=== PATIENT | male | born 1935 | race Hispanic/Latino ===

== ENCOUNTER 2019-02-04 11:26 | Inpatient (IN) | payer MEDICARE ==
[~2019-02-04] VITALS: Ht 167.6 cm; Wt 72.6 kg
[2019-02-04 12:23] LABS: BASOPHILS % 0.5 % (0.0-1.0); EOSINOPHILS # (AUTO) 0.1 (0.0-0.4); EOSINOPHILS % 1.1 % (0.0-6.0); HEMATOCRIT 30.9 % (38.2-49.6); HEMOGLOBIN 9.9 g/dL (14.0-18.0); LYMPHOCYTES % 11.9 % (18.0-39.1); MEAN CORPUSCULAR VOLUME 90.6 fL (81-99); MONOCYTES # (AUTO) 0.9 (0.2-0.8); MONOCYTES % 11.2 % (4.4-11.3); NEUTROPHILS % 73.8 % (38.7-80.0); PLATELET COUNT 510 x10e3/uL (140-360); RED BLOOD COUNT 3.41 x10e6/uL (4.3-5.7); RED CELL DISTRIBUTION WIDTH 12.3 % (11.7-14.4)
[2019-02-04 12:38] LABS: CLARITY,URINE SL CLOUDY (CLEAR); COLOR,URINE YELLOW (YELLOW)
[2019-02-04 12:39] LABS: BILIRUBIN,URINE NEGATIVE (NEGATIVE); KETONES,URINE NEGATIVE (NEGATIVE); LEUKOCYTE ESTERASE ,URINE NEGATIVE (NEGATIVE); NITRITE,URINE NEGATIVE (NEGATIVE); PROTEIN,URINE DIPSTICK NEGATIVE (NEGATIVE); URINE UROBILINOGEN 0.2 mg/dL (0.2 - 1)
[2019-02-04 12:40] LABS: AMORPHOUS SEDIMENT,URINE FEW (FEW); BACTERIA,URINE MODERATE /HPF; EPITHELIAL CELLS,URINE MODERATE /LPF; INR 1.05; MUCUS,URINE MODERATE (RARE); PROTHROMBIN TIME 14.2 seconds (11.9-14.5); RBC,URINE 0-5 /HPF (0-5); WBC,URINE (MAN) 0-5 /HPF (0-5)
[2019-02-04 12:42] LABS: ALANINE AMINOTRANSFERASE 132 IU/L (0-55); ALBUMIN 2.5 g/dL (3.5-5.0); ALBUMIN/GLOBULIN RATIO 0.5 (0.8-2.0); ALKALINE PHOSPHATASE 84 IU/L (40-150); ANION GAP 19.9 mmol/L (8-16); BLOOD UREA NITROGEN 52 mg/dL (7-26); BUN/CREATININE RATIO 24 (6-25); CALCIUM 9.2 mg/dL (8.4-10.2); CARBON DIOXIDE 18 mmol/L (22-29); CHLORIDE 104 mmol/L (98-107); CREATINE KINASE 35 IU/L (30-200); CREATININE, SERUM 2.19 mg/dL (0.72-1.25); EST GLOMERULAR FILTRATION RATE 29 ML/MIN (60-); GLUCOSE 270 mg/dL (74-118); PARTIAL THROMBOPLASTIN TIME 58.1 seconds (23.8-35.5); POTASSIUM 4.9 mmol/L (3.5-5.1); SODIUM 137 mmol/L (136-145)
--- NOTE | 2019-02-04 13:15 | Diagnostic Imaging Report ---
EXAMINATION: CHEST 2 VIEWS INDICATION: Cough, shortness of breath COMPARISON: None FINDINGS: LINES/TUBES:EKG leads overlie the chest. LUNGS:The lungs are moderately inflated. Patchy opacity at the right lung base. PLEURA:Moderate right pleural effusion. No pneumothorax. MEDIASTINUM:The cardiomediastinal silhouette appears normal in size and shape. Atherosclerotic calcifications of the thoracic aorta. BONES/SOFT TISSUES:No acute osseous injury. ABDOMEN:No free air under the diaphragm. IMPRESSION: Moderate right pleural effusion. Patchy opacity at the right lung base likely represents associated subsegmental atelectasis. Signed by: Robbin Briseno MD on 02/04/2019 1:11 PM
[2019-02-04] MEDS ORDERED: DEXTROSE 50% SYRINGE 50 ML IV PRN (13:30)
[2019-02-04] MEDS ORDERED: SODIUM CHLORIDE 0.9% 1000ML 1,000 ML IV ONE (13:30)
[2019-02-04] MEDS ORDERED: SODIUM CHLORIDE 0.9% 1000ML 1,000 ML IV SCH (13:30)
--- OUTSIDE RECORDS SUMMARY | 2019-02-04 13:37 | XMS REPORT ---
Author Author [facility] Address Unknown Phone Unavailable Care Team Providers Care Tool Inspector Name Role Phone Don HARLEY Unavailable Unavailable Problems This patient has no known problems. Allergies, Adverse Reactions, Alerts This patient has no known allergies or adverse reactions. Medications This patient has no known medications. Results Test Description Test Time Test Comments Text Results Atomic Results Result Comments CHEST 2 VIEWS 2019-02-04 13:10:00 [place] [address] Patient Name: EDWARD SANCHEZ MR #: [id number] : 1935 Age/Sex: 83/M Req #: [id number] Adm Physician: Ordered by: JANETH HARLEY MD Report #: [id number] Location: ER Room/Bed: Procedure: [id number] DX/CHEST 2 VIEWS Exam Date: Exam Time: REPORT STATUS: Signed EXAMINATION: CHEST 2 VIEWS INDICATION: Cough, shortness of breath COMPARISON: None FINDINGS: LINES/TUBES:EKG leads overlie the chest. LUNGS:The lungs are moderately inflated. Patchy opacity at the right lung base. PLEURA:Moderate right pleural effusion. No pneumothorax. MEDIASTINUM:The cardiomediastinal silhouette appears normal in size and shape. Atherosclerotic calcifications of the thoracic aorta. BONES/SOFT TISSUES:N o acute osseous injury. ABDOMEN:No free air under the diaphragm. IMPRESSION: Moderate right pleural effusion. Patchy opacity at the right lung base likely represents associated subsegmental atelectasis. Signed by: Leanne Briseno MD on 02/04/2019 1:11 PM Dictated By: LEANNE BRISENO MD [id number] Transcribed By: TYLER on 02/04/191310 COPY TO: JANETH HARLEY MD
[2019-02-04] MEDS: CEFTRIAXONE SOD 1 GM/NS 50 ML 50 ML IV SCH (14:10)
[2019-02-04] MEDS ORDERED: LISINOPRIL40 MG PO (14:19)
[2019-02-04] MEDS ORDERED: JANUVIA100 MG PO (14:19)
[2019-02-04] MEDS: AZITHROMYCIN 500MG/NS 250 ML 250 ML IV SCH (14:43)
[2019-02-04] MEDS: ALBUTEROL SULF 0.083% NEB SOLN 3 ML NEB NEB SCH ×2 (14:45→19:45)
[2019-02-04 15:50] VITALS: BP 123/57
[2019-02-04] MEDS: INSULIN LISPRO 100 UNIT/1 ML 3ML VIAL SQ SCH ×2 (16:30→21:48)
--- NOTE | 2019-02-04 16:30 | NUR ---
RCD PT FROM ER BY STRETCHER PT IS ALERT AND ORIENTED VITALS CHECKED PT RESTING ON BED NO SIGNS OF ANY DISTRESS NOTED ADMISSION ASSESSMENT AND HISTORY DONE PT IS MAINLY PERUVIAN SPEAKING FAMILY WITH HIM FAMILY SAID [place] STARTED THE BREATHING PROBLEM FOR 3 MONTHS HE WAS TREATING OUT PATIENT BASIS HE DIDN'T FEEL BETTER SO HE CAME TO THE HOSPITAL IV PATENT AND RUNNING 100 ML /HE INSTRUCTED PT AND FAMILY REGARDING HOSPITAL POLICY AND ROUTINE BED LOW AND LOCKED CALL LIGHT IN REACH
[2019-02-04 17:27] VITALS: BP 123/57
[2019-02-04 17:28] VITALS: BP 123/57
--- NOTE | 2019-02-04 18:26 | NUR ---
PT WENT TO PROCEDURE IN SAFE CONDITION
--- NOTE | 2019-02-04 19:11 | NUR ---
PT RESTING ON BED BED SIDE REPORT GIVEN TO ONCOMING NURSE
[2019-02-04] MEDS: IPRATROPIUM BROMIDE 0.02% 2.5 ML NEB NEB SCH (19:45)
[2019-02-04 20:21] VITALS: BP 143/64
--- NOTE | 2019-02-04 20:37 | Diagnostic Imaging Report ---
EXAMINATION: CT scan of the chest without contrast. TECHNIQUE: Spiral CT images of the chest were performed from the lung apices to the level of the adrenal glands. No intravenous contrast was administered per physician's request. Coronal and sagittal reformatted images were obtained. COMPARISON: Chest 2 views 02/04/2019 CLINICAL HISTORY:Pleural effusion, prior exposure to TB DISCUSSION: ABSENCE OF INTRAVENOUS CONTRAST DECREASES SENSITIVITY FOR DETECTION OF FOCAL LESIONS AND VASCULAR PATHOLOGY. LINES/TUBES: None. LUNGS AND AIRWAYS: Marked compressive atelectasis of the right lower lobe and moderate compressive atelectasis of the right middle lobe. No pulmonary nodules, or masses. No significant bronchiectasis. The airways are clear, without endobronchial lesions. PLEURA: Large right-sided pleural effusion. No pneumothorax. HEART AND MEDIASTINUM: Thyroid is unremarkable. Heart size is normal. No pericardial effusion. Mild atherosclerotic calcification of the aortic valves and coronary arteries moderate calcification of the thoracic aortic arch. The aorta is nonaneurysmal. Main pulmonary artery is enlarged, measuring 3.4 cm. LYMPH NODES: Mildly enlarged right lower paratracheal lymph node, which measures 1.1 cm in short axis and is partly calcified. Calcified nonenlarged right periaortic, right lower paratracheal, subcarinal and bilateral hilar nodes. No axillary adenopathy. ABDOMEN: Limited unenhanced views of the upper abdomen show no abnormality within the visualized liver, spleen, pancreas. The adrenal glands are unremarkable. BONES AND SOFT TISSUES: No acute bony abnormalities. Soft tissues are grossly unremarkable. IMPRESSION: 1. Large right-sided pleural effusion with marked compressive atelectasis of the right lower lobe with moderate compressive atelectasis of the right middle lobe. 2. Mildly enlarged right lower paratracheal lymph node which is partly calcified. Multiple mediastinal and hilar calcified nodes, consistent with prior granulomatous disease. 3. Main pulmonary artery is enlarged, suggesting pulmonary hypertension. Signed by: Dr. Bernardo Morgan M.D. on 02/04/2019 8:34 PM
[2019-02-04 20:52] VITALS: BP 143/64
[2019-02-04 21:19] LABS: CREATINE KINASE MB 2.1 ng/mL (0-5.0)
[2019-02-05] VITALS (8 sets, daily range): BP systolic 117–173; BP diastolic 60–79
[2019-02-05] MEDS: ALBUTEROL SULF 0.083% NEB SOLN 3 ML NEB NEB SCH ×6 (00:05→23:10)
[2019-02-05] MEDS: IPRATROPIUM BROMIDE 0.02% 2.5 ML NEB NEB SCH ×4 (00:05→19:25)
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
--- NOTE | 2019-02-05 02:22 | History and Physical ---
MEDICINE HISTORY AND PHYSICAL CHIEF COMPLAINT: Shortness of breath. HISTORY OF PRESENT ILLNESS: This is an 83-year-old male, history of type 2 diabetes and hypertension, comes into the ED with complaints of shortness of breath, ongoing for the last several days prior to arrival to the hospital. He was recently diagnosed by his primary care physician several weeks ago with underlying community-acquired pneumonia. At that time, his QuantiFERON gold was positive according to the traveling auditor and was sent to a local traveling auditor, Dr. Hernandez to be further evaluated. At that time, he did evaluate the patient. He noticed that he had some pleural effusion, and he was told to come to get a thoracentesis, ultrasound guided. Instead, the patient did not do that and presented to the [facility] ER for further management and care. The patient reports having some worsening cough and congestion ongoing for the last one month. He denies any fever at home, chest pain, or any palpitations. He does report that he does have some pleural effusion. After discussing this case with Pulmonary, his QuantiFERON gold was positive, but we do not know if the patient truly has active TB or not. At this time, the patient will be under airborne precautions and further testing will be performed. The patient is seen and evaluated at bedside on the medical floor. He is currently doing well with no other issues at this time. The patient's children were at bedside and they were not aware of his QuantiFERON gold being positive. REVIEW OF SYSTEMS: 1. Pertinent positives: Cough, congestion, and shortness of breath. 2. Pertinent negatives: Denies any chest pain, palpitation, nausea, vomiting, diarrhea, dysuria, hematuria, frequency, urgency, lightheadedness, dizziness, abdominal pain, headaches, or any fever. Rest of the 14-point review of systems have been reviewed with the patient and are negative. ALLERGIES: NO KNOWN DRUG ALLERGIES. HOME MEDICATIONS: 100 mg daily. He takes lisinopril 40 mg daily. PAST MEDICAL HISTORY: Hypertension and diabetes. PAST SURGICAL HISTORY: Reports none. FAMILY HISTORY: Hypertension and diabetes. SOCIAL HISTORY: No drugs. No alcohol. Does not smoke. Good social support. PHYSICAL EXAMINATION: VITAL SIGNS: Temperature is 96.3, pulse is 94, respiratory rate is 20, blood pressure is 120/57, and pulse ox is 96% on room air. GENERAL: Not in acute distress. Alert and oriented x3. Cooperative on examination. HEENT: Head is normocephalic and atraumatic. Eyes; pupils are equal, round, and reactive to light bilaterally. Throat, no evidence of erythema or exudates in the posterior pharynx. Has poor dentition. NECK: Supple. Good range of motion throughout. PULMONARY: Clear to auscultation bilaterally. No wheezing, no rales, no rhonchi, no crackles appreciated. CARDIOVASCULAR: Positive S1 and S2. No murmurs, rubs, or gallops appreciated. ABDOMEN: Soft, nontender, and nondistended to palpation. Bowel sounds present. MUSCULOSKELETAL: Strength is 5/5 throughout. No evidence of any muscle deficits on examination. No weakness appreciated. NEUROLOGICAL: Cranial nerves 2 through 12 grossly intact. No evidence of any neurological deficits on exam. SKIN: Intact. Warm to touch. Good cap refill. PSYCHIATRIC: Normal affect and mood. EXTREMITIES: No edema. Good range of motion throughout. LABORATORY FINDINGS: Show white count 8, hemoglobin 9.9, hematocrit 30.9, and platelets of 510. Coagulation; PT 14, INR 1, PTT 58. Chemistry; sodium 137, potassium 4.9, chloride 104, bicarb 18, anion gap of 19, BUN is 52, creatinine is 2.2, glucose is 270, and calcium 9.2. LFTs shows a total bilirubin was 0.8, AST 80, ALT 132. CK 35, troponin is 0.001. BNP 82, total protein 7.2, albumin is 2.5. Urinalysis shows a urine bacteria was moderate, hyaline casts 2-5, moderate urine mucus, and specific gravity was elevated at 1.030. Slightly cloudy urine. MICROBIOLOGY: Blood cultures are pending. IMAGING STUDIES: Chest x-ray shows moderate right pleural effusion. Patchy opacity in the right lung base likely represent associated subsegmental atelectasis. IMPRESSION: 1. Shortness of breath with underlying right pleural effusion. 2. QuantiFERON gold positive. Must rule out active TB. 3. Probable community-acquired pneumonia. 4. Type 2 diabetes. 5. Hypertension. PLAN: At this time, continue with IV antibiotics. Monitor urine for blood cultures. I did consult with Pulmonary and he did state to me that the patient had a positive QuantiFERON gold in the office. At this time, we do not know if the patient truly has active TB or latent TB. We are going to go ahead and order a chest CT with IV contrast to see if there are any cavitary lesions. We will continue with IV fluids. We will go ahead and consult IR to do a thoracentesis as well and assess for his underlying etiology. Otherwise, we will also order a.m. labs. Get a hemoglobin A1c. Insulin sliding scale. No IV fluids indicated. We will put Lovenox for DVT prophylaxis as well. MD RUFINO Nuñez/MODL /[id number]
--- NOTE | 2019-02-05 02:40 | NUR ---
Patient complained of bladder discomfort. Bladder tenderness noted. Bladder scan done and revealed 554 ml of urine. Will notify .
--- NOTE | 2019-02-05 02:50 | NUR ---
New orders received from Dr. Hopkins to insert Randle.
--- NOTE | 2019-02-05 03:00 | NUR ---
Randle [place] 16 inserted, 560 ml urine noted.
[2019-02-05 04:58] LABS: BASOPHILS % 0.3 % (0.0-1.0); EOSINOPHILS % 0.4 % (0.0-6.0); HEMATOCRIT 26.7 % (38.2-49.6); HEMOGLOBIN 8.5 g/dL (14.0-18.0); LYMPHOCYTES # (AUTO) 0.6 (1.0-3.2); LYMPHOCYTES % 8.5 % (18.0-39.1); MEAN CORPUSCULAR HEMOGLOBIN 28.6 pg (28-32); MEAN CORPUSCULAR HGB CONC 31.8 g/dL (31-35); MEAN CORPUSCULAR VOLUME 89.9 fL (81-99); MONOCYTES # (AUTO) 0.8 (0.2-0.8); MONOCYTES % 10.5 % (4.4-11.3); NEUTROPHILS # (AUTO) 5.7 (2.1-6.9); NEUTROPHILS % 78.1 % (38.7-80.0); PLATELET COUNT 479 x10e3/uL (140-360); RED BLOOD COUNT 2.97 x10e6/uL (4.3-5.7); RED CELL DISTRIBUTION WIDTH 12.3 % (11.7-14.4)
[2019-02-05 05:30] LABS: ALBUMIN 2.2 g/dL (3.5-5.0); ALBUMIN/GLOBULIN RATIO 0.6 (0.8-2.0); ANION GAP 15.9 mmol/L (8-16); CALCIUM 8.4 mg/dL (8.4-10.2); CREATININE, SERUM 1.64 mg/dL (0.72-1.25); POTASSIUM 4.9 mmol/L (3.5-5.1)
[2019-02-05 06:30] LABS: CREATINE KINASE MB 2.3 ng/mL (0-5.0)
--- NOTE | 2019-02-05 06:46 | Diagnostic Imaging Report ---
EXAMINATION: CHEST SINGLE (PORTABLE) INDICATION: Pneumonia. COMPARISON: 02/04/2019. FINDINGS: LINES/TUBES:None. LUNGS:Patchy opacity at the right lung base suggestive of compressive atelectasis.. PLEURA:Moderate right pleural effusion. No pneumothorax. MEDIASTINUM:The cardiomediastinal silhouette appears normal in size and shape. Atherosclerotic calcifications of the thoracic aorta. BONES/SOFT TISSUES:No acute osseous injury. ABDOMEN:No free air under the diaphragm. IMPRESSION: No interval change. Moderate right pleural effusion and right lower lobe compressive atelectasis best evaluated on recent CT chest. Signed by: Dr. Andrew Rowan M.D. on 02/05/2019 6:42 AM
[2019-02-05] MEDS: INSULIN LISPRO 100 UNIT/1 ML 3ML VIAL SQ SCH ×4 (07:30→20:36)
[2019-02-05 08:48] LABS: BAND NEUTROPHILS % (MANUAL) 4 %; LYMPHOCYTES % (MANUAL) 9 % (19-48); MONOCYTES % (MANUAL) 7 % (3.4-9.0); NEUTROPHILS % (MANUAL) 80 % (40-74)
[2019-02-05 08:51] LABS: NUCLEATED RED BLOOD CELLS 0
[2019-02-05] MEDS: AZITHROMYCIN 500MG/NS 250 ML 250 ML IV SCH (08:52)
[2019-02-05] MEDS: SITAGLIPTIN 100 MG TAB PO SCH (08:52)
[2019-02-05 08:53] LABS: ANISOCYTOSIS S; PLATELET ESTIMATE SLIGHTLY INCREASED; PLATELET MORPHOLOGY COMMENT NORMAL; POIKILOCYTOSIS S; RBC MORPHOLOGY COMMENT NORMAL
--- NOTE | 2019-02-05 09:00 | NUR ---
The pt. is in bed awake and alert and denies pain or discomfort at this time. The pt. denies productive cough. He has family members in attendance.
[2019-02-05] MEDS: CEFTRIAXONE SOD 1 GM/NS 50 ML 50 ML IV SCH (13:15)
--- NOTE | 2019-02-05 13:30 | Progress Note ---
DATE: 02/05/2019 Medicine Progress Note SUBJECTIVE: He is scheduled for thoracentesis later today. No overnight events. PHYSICAL EXAMINATION: VITAL SIGNS: He is afebrile, normotensive. Respiratory rate is good. He is on 97% on nasal cannula. GENERAL: Not in acute distress. Alert and oriented x3. Cooperative on examination. HEENT: Head; normocephalic and atraumatic. Eyes; pupils are equal, round, and reactive to light bilaterally. Extraocular movements are intact bilaterally. Throat; no evidence erythema or exudates in the posterior pharynx. Has poor dentition. NECK: Supple. Good range of motion throughout. PULMONARY: Clear to auscultation bilaterally. No wheezing, no rales, no rhonchi, no crackles appreciated. CARDIOVASCULAR: Positive S1 and S2. No murmurs, rubs, or gallops appreciated. ABDOMEN: Soft, nontender, and nondistended to palpation. Bowel sounds present. MUSCULOSKELETAL: Strength is 5/5 throughout. No evidence of any muscle deficits on examination. No weakness appreciated. NEUROLOGICAL: Cranial nerves II through XII grossly intact. No evidence of neurological deficits on exam. SKIN: Intact. Warm to touch. Good cap refill. PSYCHIATRIC: Normal affect and mood. EXTREMITIES: No edema. Good range of motion throughout. LABORATORY DATA: Lab findings show white count 7.3, hemoglobin 8.5, hematocrit 26, platelets of 479. Coagulation normal. Chemistries reviewed, it shows sodium 137, potassium 4.9, 107, bicarb 19, anion gap of 15, BUN 43, creatinine 1.6, glucose is 223. Hemoglobin A1c is 8.3, albumin is 2.2. Cardiac enzymes were all negative. MICROBIOLOGY: Blood cultures are pending. IMAGING STUDIES: Chest x-ray this morning shows no interval change. Moderate right pleural effusion and right lower lobe compressive atelectasis. IMPRESSION: 1. Respiratory distress with underlying right pleural effusion. 2. QuantiFERON gold positive, must rule out TB. 3. Probable community-acquired pneumonia. 4. Type 2 diabetes. 5. Hypertension. PLAN: At this time, continue with IV antibiotics for now. Monitor blood cultures. Pulmonary is following as well. We do have a chest x-ray today that showed similar findings as yesterday. He is scheduled for thoracentesis later today by IR. We will continue with Lovenox for DVT prophylaxis and follow with Pulmonary recommendations. Get a.mCecilia labs. MD RUFINO Nuñez/ISIS /[id number]
--- NOTE | 2019-02-05 14:14 | NUR ---
The pt was given a specimen cup to collect a sputum sample.
--- NOTE | 2019-02-05 14:15 | Progress Note ---
DATE: SUBJECTIVE: The patient has less dyspnea today. He is undergoing an echo. He is awaiting thoracentesis. PHYSICAL EXAMINATION: VITAL SIGNS: The patient is afebrile. The blood pressure is 155/75 and the saturation is 97%. HEENT: Shows no facial swelling or erythema. LYMPHATIC: Shows no submandibular, cervical, or supraclavicular adenopathy. CARDIAC: Reveals a regular rate and rhythm with normal S1 and S2. LUNGS: Auscultation of lungs shows decreased breath sounds on the right side. ABDOMEN: Soft and nontender. There is no rebound or guarding. EXTREMITIES: Show no leg edema or calf tenderness. There is no cyanosis or clubbing. SKIN: Shows no rashes. NEUROLOGICAL: Shows no focal abnormalities. RADIOGRAPHIC DATA: CT scan of the chest shows a large right-sided pleural effusion and some enlarged calcified paratracheal lymph nodes consistent with prior granulomatous infection. IMPRESSION: 1. Dyspnea and large right pleural effusion of unclear cause. 2. 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 PLAN: 1. The patient is awaiting ultrasound-guided thoracentesis. 2. Await results of echocardiogram. 3. Obtain sputum for AFB. 4. Further recommendations depending on test results. Johnathan Hernandez MD [facility]/ISIS /[id number]
[2019-02-05] MEDS: ENOXAPARIN SOD INJ 40 MG/0.4 ML SYR SC SCH (17:00)
--- NOTE | 2019-02-05 17:59 | NUR ---
Contacted the for thoracentesis fluid tests and was advised that what he wants run is already in the compter as he put them in himself on 02/04. 500 cc's fluid removed.
[2019-02-05 18:18] LABS: BODY FLUID APPEARANCE CLOUDY; BODY FLUID COLOR YELLOW; BODY FLUID TYPE PLEURAL
[2019-02-05 19:19] LABS: RBC,BODY FLUID 2960 cells/uL; WBC,BODY FLUID 5455 cells/uL
[2019-02-05 20:21] LABS: LYMPHOCYTES,BODY FLUID 87 %; MONO/MACROPHG,BODY FLUID 10 %; NEUTROPHILS,BODY FLUID 3 %
[2019-02-06] MEDS: IPRATROPIUM BROMIDE 0.02% 2.5 ML NEB NEB SCH ×4 (02:35→19:00)
[2019-02-06] MEDS: ALBUTEROL SULF 0.083% NEB SOLN 3 ML NEB NEB SCH ×6 (02:35→23:00)
[2019-02-06 05:04] LABS: BASOPHILS % 0.4 % (0.0-1.0); EOSINOPHILS # (AUTO) 0.1 (0.0-0.4); EOSINOPHILS % 1.3 % (0.0-6.0); HEMATOCRIT 28.9 % (38.2-49.6); HEMOGLOBIN 9.2 g/dL (14.0-18.0); LYMPHOCYTES # (AUTO) 0.6 (1.0-3.2); LYMPHOCYTES % 8.4 % (18.0-39.1); MEAN CORPUSCULAR HEMOGLOBIN 28.8 pg (28-32); MEAN CORPUSCULAR HGB CONC 31.8 g/dL (31-35); MEAN CORPUSCULAR VOLUME 90.3 fL (81-99); MONOCYTES # (AUTO) 1.1 (0.2-0.8); MONOCYTES % 14.7 % (4.4-11.3); NEUTROPHILS # (AUTO) 5.2 (2.1-6.9); NEUTROPHILS % 73.2 % (38.7-80.0); PLATELET COUNT 477 x10e3/uL (140-360); RED CELL DISTRIBUTION WIDTH 12.3 % (11.7-14.4)
[2019-02-06 05:29] LABS: ALBUMIN 2.4 g/dL (3.5-5.0); ALBUMIN/GLOBULIN RATIO 0.6 (0.8-2.0); ANION GAP 14.1 mmol/L (8-16); CREATININE, SERUM 1.64 mg/dL (0.72-1.25); POTASSIUM 5.1 mmol/L (3.5-5.1)
[2019-02-06 05:43] VITALS: BP 126/76
[2019-02-06 08:01] VITALS: BP 122/65
[2019-02-06] MEDS: AZITHROMYCIN 500MG/NS 250 ML 250 ML IV SCH (08:15)
[2019-02-06] MEDS: SITAGLIPTIN 100 MG TAB PO SCH (08:15)
[2019-02-06 08:20] VITALS: BP 122/65
[2019-02-06] MEDS: INSULIN LISPRO 100 UNIT/1 ML 3ML VIAL SQ SCH ×4 (08:30→21:45)
--- NOTE | 2019-02-06 08:36 | Diagnostic Imaging Report ---
PROCEDURE: Ultrasound-guided thoracentesis Procedural Personnel Attending physician(s): Robbin Briseno MD Fellow physician(s): None Resident physician(s): None Advanced practice provider(s): None Pre-procedure diagnosis: Right pleural effusion Post-procedure diagnosis: Same Indication: Pleural effusion with compromised respiration Additional clinical history: None Complications: No immediate complications. IMPRESSION: Ultrasound-guided thoracentesis with drainage of 550 mL of serous fluid. Plan: Resume care by clinical team. PROCEDURE SUMMARY: - Limited thoracic ultrasound - Ultrasound-guided thoracentesis - Additional procedure(s): None PROCEDURE DETAILS: Pre-procedure Consent: Informed consent for the procedure including risks, benefits and alternatives was obtained and time-out was performed prior to the procedure. Preparation: The site was prepared and draped using maximal sterile barrier technique including cutaneous antisepsis. Anesthesia/sedation Level of anesthesia/sedation: No sedation Anesthesia/sedation administered by: Not applicable Limited thoracic ultrasound Limited thoracic ultrasound was performed using a curved transducer. A safe window for thoracentesis was identified. Left hemithorax findings: Not investigated Right hemithorax findings: Moderate pleural effusion Thoracentesis Local anesthesia was administered. The pleural space was accessed and fluid return confirmed position. The fluid was drained. The catheter was removed, and a sterile bandage was applied. Catheter placed: 5F Yueh Post-drainage hemithorax findings: Small pleural effusion Additional Details Additional description of procedure: None Equipment details: None Specimens removed: Pleural fluid Estimated blood loss (mL): Less than 10 Standardized report: [id number] Attestation Signer name: Robbin Briseno MD I attest that I was present for the entire procedure. I reviewed the stored images and agree with the report as written. Signed by: Robbin Briseno MD on 02/06/2019 8:32 AM
--- NOTE | 2019-02-06 08:49 | Diagnostic Imaging Report ---
EXAMINATION: CHEST 2 VIEWS INDICATION: Pleural effusion COMPARISON: Multiple prior chest radiograph, most recently of 02/05/2019, chest CT of 02/04/2019 FINDINGS: LINES/TUBES:EKG leads overlie the chest. LUNGS:The left lung is well inflated. The right lung is moderately inflated. Patchy opacity at the right lung base, likely subsegmental atelectasis. PLEURA:Moderate right pleural effusion, somewhat decreased from 02/05/2019. No pneumothorax. MEDIASTINUM:The cardiomediastinal silhouette appears unchanged in size and shape. Atherosclerotic calcifications of the thoracic aorta. BONES/SOFT TISSUES:No acute osseous injury. ABDOMEN:No free air under the diaphragm. IMPRESSION: Moderate right pleural effusion, somewhat decreased from 02/05/2019. No pneumothorax. Patchy right basilar opacity, likely subsegmental atelectasis. Signed by: Robbin Briseno MD on 02/06/2019 8:46 AM
--- NOTE | 2019-02-06 10:07 | NUR ---
Sputum taken to lab
--- NOTE | 2019-02-06 11:19 | Progress Note ---
DATE: SUBJECTIVE: The patient had ultrasound-guided thoracentesis yesterday. A 550 mL were removed. The fluid was serosanguineous. There were 5455 white blood cells with 87% lymphocytes. The patient reports some improved dyspnea. He had some urinary retention yesterday and a Randle was placed. PHYSICAL EXAMINATION: VITAL SIGNS: The patient is afebrile. The blood pressure is 126/76. HEENT: Shows no facial swelling or erythema. LYMPHATIC: Shows no submandibular, cervical, or supraclavicular adenopathy. CARDIAC: Reveals regular rate and rhythm with normal S1 and S2. There are no murmurs or rubs heard. LUNGS: Auscultation of lungs shows decreased breath sounds on the right side. ABDOMEN: Soft, nontender. There is no rebound or guarding. EXTREMITIES: There is no leg edema or calf tenderness. LABORATORY DATA: BUN to creatinine ratio is 32:1.64 and the other electrolytes are within normal limits. AST is 39 and ALT is 90. White blood cell count is 7.1 and hemoglobin is 9.2. The platelet count is 477. IMPRESSION: 1. Dyspnea and a large right pleural effusion with lymphocytic predominance. 2. Positive QuantiFERON Gold test. 3. Acute urinary retention, possibly secondary to benign prostatic hypertrophy. 4. Xetet-gs-ksrxwhv renal failure. PLAN: 1. Await results of echocardiogram. 2. Continue to obtain sputum for AFB. 3. Start Flomax and attempt trial of catheter removal. 4. Repeat chest x-ray today. Johnathan Hernandez MD [facility]/ISIS /[id number]
[2019-02-06 11:28] VITALS: BP 129/64
[2019-02-06] MEDS: CEFTRIAXONE SOD 1 GM/NS 50 ML 50 ML IV SCH (13:12)
--- NOTE | 2019-02-06 15:20 | Progress Note ---
DATE: 02/06/2019 Medicine Progress Note SUBJECTIVE: The patient is doing well today with no complaints. He did have a thoracentesis yesterday with 500 mL of fluid removed. PHYSICAL EXAMINATION: VITAL SIGNS: Temperature is 97.4, pulse 93, respiratory rate is 20, blood pressure 129/64, and pulse ox 95% on room air. GENERAL: Not in acute distress. Alert and oriented x3. Cooperative on examination. HEENT: Head; normocephalic, atraumatic. Eyes; pupils are equal, round, and reactive to light bilaterally. Extraocular movements intact bilaterally. Throat; no evidence of erythema or exudates in the posterior pharynx. Has poor dentition. NECK: Supple. Good range of motion. PULMONARY: Clear to auscultation bilaterally. No wheezing, no rales, no rhonchi, no crackles appreciated. CARDIOVASCULAR: Positive S1 and S2. No murmurs, rubs, or gallops appreciated. ABDOMEN: Soft, nondistended, and nontender to palpation. Bowel sounds present. MUSCULOSKELETAL: Strength is 5/5 throughout. No evidence of any muscle deficits on examination. No weakness appreciated. NEUROLOGIC: Cranial nerves II through XII grossly intact. No evidence of any neurological deficits on exam. SKIN: Intact. Warm to touch. Good cap refill. PSYCHIATRIC: Normal affect and mood. EXTREMITIES: No edema. Good range of motion throughout. LABORATORY FINDINGS: Show white count 7.1, hemoglobin 9.2. Hematocrit 28.9, and platelets of 477. Coagulation stable. Chemistries reviewed, stable. IMPRESSION: 1. Respiratory distress with underlying right pleural effusion, status post thoracentesis on 02/05/2019, 500 mL of fluid removed. 2. QuantiFERON gold positive, rule out TB. 3. Probable community-acquired pneumonia. 4. Type 2 diabetes. 5. Hypertension. PLAN: At this time, continue to follow the cultures, IV antibiotics. Thoracentesis performed yesterday. Monitor blood culture no growth to date. Pulmonary is following as well. Sputum cultures have been sent off as well. Get a.m. labs. Bravo Hopkins MD JSJuliann/MODL /[id number]
[2019-02-06 15:58] VITALS: BP 127/67
[2019-02-06] MEDS: ENOXAPARIN SOD INJ 40 MG/0.4 ML SYR SC SCH (16:37)
[2019-02-06 20:00] VITALS: BP 127/72
[2019-02-06] MEDS: TAMSULOSIN HCL 0.4 MG CAP PO SCH (21:45)
[2019-02-07] VITALS (8 sets, daily range): BP systolic 116–134; BP diastolic 60–79
[2019-02-07] MEDS: IPRATROPIUM BROMIDE 0.02% 2.5 ML NEB NEB SCH ×4 (04:41→19:00)
[2019-02-07] MEDS: ALBUTEROL SULF 0.083% NEB SOLN 3 ML NEB NEB SCH ×6 (04:41→23:00)
[2019-02-07 05:26] LABS: ALBUMIN 2.2 g/dL (3.5-5.0); ALBUMIN/GLOBULIN RATIO 0.5 (0.8-2.0); ANION GAP 15.4 mmol/L (8-16); CALCIUM 8.8 mg/dL (8.4-10.2); CREATININE, SERUM 1.27 mg/dL (0.72-1.25); POTASSIUM 4.4 mmol/L (3.5-5.1)
[2019-02-07] MEDS: INSULIN LISPRO 100 UNIT/1 ML 3ML VIAL SQ SCH ×4 (08:30→22:11)
[2019-02-07] MEDS: AZITHROMYCIN 500MG/NS 250 ML 250 ML IV SCH (08:36)
[2019-02-07] MEDS: SITAGLIPTIN 100 MG TAB PO SCH (08:36)
--- NOTE | 2019-02-07 11:09 | Progress Note ---
DATE: SUBJECTIVE: The patient reports less cough. He feels better. He has better appetite. PHYSICAL EXAMINATION: VITAL SIGNS: The patient is afebrile. The blood pressure is 118/64 and saturation is 99%. HEENT: Shows no facial swelling or erythema. The nasal mucosa is normal. The oropharynx is normal. LYMPHATIC: Shows no submandibular, cervical, or supraclavicular adenopathy. CARDIAC: Reveals regular rate and rhythm with normal S1 and S2. There are no murmurs or rubs. RESPIRATORY: Auscultation of lungs reveal clear breath sounds bilaterally. There is no wheezing. ABDOMEN: Soft and nontender. There is no rebound or guarding. EXTREMITIES: Show no leg edema or calf tenderness. There is no cyanosis or clubbing. SKIN: Shows no rashes. IMPRESSION: 1. Right pleural effusion with lymphocytosis. 2. 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 3. Acute on chronic renal failure. 4. Urinary retention secondary to benign prostatic hypertrophy. PLAN: 1. Final sputum for AFB this morning. 2. Continue Flomax. 3. Family to be evaluated for exposure to tuberculosis. 4. Await potential treatment for mycobacterium infection. 5. Await sputum AFB results. If the patient is AFB positive, then he should be started on antituberculosis regimen. Johnathan Hernandez MD [facility]/ITZELL /[id number]
[2019-02-07] MEDS: CEFTRIAXONE SOD 1 GM/NS 50 ML 50 ML IV SCH (12:43)
--- NOTE | 2019-02-07 15:56 | Progress Note ---
DATE: 02/07/2019 Nephrology Progress Note SUBJECTIVE: The patient is doing well today with no complaints. if this is a true positive or not. If it is positive, then we have to get health department involved. If it is negative then he could possibly will be discharged home soon. We will have to wait for the results on this particular sputum. I discussed with the nursing staff. PHYSICAL EXAMINATION: VITAL SIGNS: Temperature 97.6, pulse 93, respiratory rate 20, blood pressure 120/66, pulse ox 96% on room air. GENERAL: Not in acute distress. Alert and oriented x3. Cooperative on examination. HEENT: Head; normocephalic, atraumatic. Eyes; pupils are equal, round, and reactive to light bilaterally. Extraocular movements intact bilaterally. Throat; no evidence of erythema or exudates in the posterior pharynx. Has poor dentition. NECK: Supple. Good range of motion. PULMONARY: Clear to auscultation bilaterally. No wheezing, no rales, no rhonchi, no crackles appreciated. CARDIOVASCULAR: Positive S1 and S2. No murmurs, rubs, or gallops appreciated. ABDOMEN: Soft, nondistended, and nontender to palpation. Bowel sounds present. MUSCULOSKELETAL: Strength is 5/5 throughout. No evidence of any muscle deficits on examination. No weakness appreciated. NEUROLOGIC: Cranial nerves II through XII grossly intact. No evidence of any neurological deficits on exam. SKIN: Intact. Warm to touch. Good cap refill. PSYCHIATRIC: Normal affect and mood. EXTREMITIES: No edema. Good range of motion throughout. LABORATORY FINDINGS: CBC stable. Chemistries show sodium 136, potassium 4.4, chloride 105, bicarb 20, anion gap of 15, BUN is 25, creatinine 1.27, glucose is 160. LFTs within normal range. ALT actually slightly elevated at 63, albumin is 2.2. MICROBIOLOGY: Still pending several AFB sputums. IMPRESSION: 1. Respiratory distress with underlying left pleural effusion, status post thoracentesis on 02/05/2019, 500 mL of fluid removed. 2. QuantiFERON gold positive, rule out TB. 3. Probable community-acquired pneumonia. 4. Type 2 diabetes. 5. Hypertension. PLAN: At this time, final sputum cultures had been collected. Wait for those preliminary results. In the event if it is positive, he will need to be treated accordingly and if it is negative, the patient can be discharged. I do not know when that will occur and maybe several more days from now before we get final results. We will continue follow the cultures and follow recommendations by Pulmonary. He is constipated, Colace and MiraLAX have been ordered. MD RUFINO Nuñez/ISIS /[id number]
--- NOTE | 2019-02-07 15:57 | NUR ---
Patient was offered shower. Patient does not want to shower at this time.
[2019-02-07] MEDS: ENOXAPARIN SOD INJ 40 MG/0.4 ML SYR SC SCH (17:00)
[2019-02-07] MEDS: POLYETHYLENE GLYCOL 3350 17 GM PACK PO SCH (17:00)
--- NOTE | 2019-02-07 19:20 | NUR ---
PATIENT RECEIVED. PATIENT RESTING IN BED. RESP EVEN AND UNLABORED. NO ACUTE DISTRESS NOTED. TELE IN PLACE. LANGFORD IN PLACE. FAMILY AT BED SIDE. CALL LIGHT WITHIN REACH. BED LOW/LOCKED. CONTINUE TO MONITOR CLOSELY
[2019-02-07] MEDS: TAMSULOSIN HCL 0.4 MG CAP PO SCH (22:06)
[2019-02-07] MEDS: DOCUSATE SODIUM 100 MG CAP PO PRN (22:06)
[2019-02-08] VITALS (7 sets, daily range): BP systolic 115–154; BP diastolic 64–82
[2019-02-08] MEDS: ALBUTEROL SULF 0.083% NEB SOLN 3 ML NEB NEB SCH ×5 (00:10→20:45)
[2019-02-08] MEDS: IPRATROPIUM BROMIDE 0.02% 2.5 ML NEB NEB SCH ×4 (06:50→20:45)
[2019-02-08] MEDS: INSULIN LISPRO 100 UNIT/1 ML 3ML VIAL SQ SCH ×4 (07:30→20:29)
--- NOTE | 2019-02-08 07:47 | NUR ---
IMM letter delivered and explained to pt. He verbalized understanding. Signed copy placed in chart. Copy to pt's transition of care folder.
[2019-02-08] MEDS: SITAGLIPTIN 100 MG TAB PO SCH (09:28)
[2019-02-08] MEDS: POLYETHYLENE GLYCOL 3350 17 GM PACK PO SCH (09:28)
[2019-02-08] MEDS: AZITHROMYCIN 500MG/NS 250 ML 250 ML IV SCH (09:28)
--- NOTE | 2019-02-08 11:05 | NUR ---
PER EXHAUSTER ENGINEER DESI, HEALTH DEPARTMENT HAS ALREADY BEEN NOTIFIED OF PATIENT STATUS.
--- NOTE | 2019-02-08 14:01 | Progress Note ---
DATE: Pulmonary Progress Note SUBJECTIVE: The patient feels much better. He has given 3 sputums to the laboratory. PHYSICAL EXAMINATION: VITAL SIGNS: The patient is afebrile. The vital signs are stable. HEENT: Shows no facial swelling or erythema. CARDIAC: Reveals regular rate and rhythm with normal S1 and S2. LUNGS: Auscultation of the lungs reveals decreased breath sounds at the bases. There is no wheezing. ABDOMEN: Soft, nontender. There is no rebound or guarding. EXTREMITIES: Show no leg edema or calf tenderness. IMPRESSION: 1. Exudative right pleural effusion with lymphocytic predominance. 2. Positive QuantiFERON Gold test. 3. [id number] renal failure. 4. Urinary retention. PLAN: 1. The patient had 3 sputums done and is awaiting AFB results. 2. Health Department has been notified and will evaluate the patient. 3. Obtain official echocardiogram results to place on medical record. 4. The patient still requires a cardiology evaluation, which can probably be done as an outpatient. 5. Family members should be screened for tuberculosis. 6. The patient is ready for discharge from my perspective. Followup of his AFBs and any required treatment can be done as an outpatient. MD GERSON Palomares/ISIS /[id number]
--- NOTE | 2019-02-08 14:57 | Progress Note ---
DATE: 02/08/2019 Medicine Progress Note SUBJECTIVE: The patient is doing well today with no complaints. I discussed case with Case Management as well as motion picture actor, we agreed to call the health department. We are not sure the patient currently has active TB or not. We would like to meet the health department weigh in, in terms of this to see they can follow up with him as an outpatient as well to make sure the patient is complying with the . OBJECTIVE: VITAL SIGNS: Afebrile, normotensive. Respiratory rate is good. GENERAL: Not in acute distress. Alert and oriented x3. Cooperative on examination. HEENT: Head; normocephalic, atraumatic. Eyes; pupils are equal, round, and reactive to light bilaterally. Extraocular movements are intact bilaterally. Throat; no evidence of erythema or exudates in the posterior pharynx. Has poor dentition. NECK: Supple. Good range of motion. PULMONARY: Clear to auscultation bilaterally. No wheezing, no rales, no rhonchi, no crackles appreciated. CARDIOVASCULAR: Positive S1 and S2. No murmurs, rubs, or gallops appreciated. ABDOMEN: Soft, nondistended, and nontender to palpation. Bowel sounds present. MUSCULOSKELETAL: Strength is 5/5 throughout. No evidence of any muscle deficits on examination. No weakness appreciated. NEUROLOGIC: Cranial nerves II through XII grossly intact. No evidence of any neurological deficits on exam. SKIN: Intact. Warm to touch. Good cap refill. PSYCHIATRIC: Normal affect and mood. EXTREMITIES: No edema. Good range of motion throughout. LABORATORY DATA: Lab findings show CBC within normal range. CHEMISTRY: None today. MICROBIOLOGY: Blood cultures negative. Body fluid cultures are preliminary, which shows no organisms seen. Acid-fast bacilli still pending. sputum pending. IMPRESSION: 1. Respiratory distress with underlying left pleural effusion, status post thoracentesis on 02/05/2019 with 500 mL of fluid removed. 2. QuantiFERON gold positive, rule out TB. 3. Probable community-acquired pneumonia. 4. Hypertension. 5. Type 2 diabetes. PLAN: At this time we are waiting on the final cultures on AFB preliminary. At this time, I have discussed this case with Pulmonary as well as Case Management. It is probably best and safe this just to notify the health department, which we have already done and help us with determining his disposition. At this time while here, we will continue final disposition from health department. Continue with antibiotics for underlying probable community acquired pneumonia. with the same plan of care. MD RUFINO Nuñez/ISIS /[id number]
[2019-02-08] MEDS: METOPROLOL SUCCINATE 25 MG TAB XL PO SCH (16:55)
[2019-02-08] MEDS: DOCUSATE SODIUM 100 MG CAP PO PRN (17:00)
[2019-02-08] MEDS: ENOXAPARIN SOD INJ 40 MG/0.4 ML SYR SC SCH (17:18)
--- NOTE | 2019-02-08 17:18 | NUR ---
Nutrition LOS Note RD Recommendation(s) for Physician / Nutrition Prescription: continue with diet as prescribed Plan of Care: Patient has been screened and assessed for nutrition risk. At this time, the patient does not pose any nutrition risk. No further nutrition intervention is warranted at this time. Will re-evaluate if consulted by medical staff. Nutrition reason for involvement: LOS Primary Dx: 1. Respiratory distress with underlying left pleural effusion, status post thoracentesis on 02/05/2019 with 500 mL of fluid removed. 2. QuantiFERON gold positive, rule out TB. 3. Probable community-acquired pneumonia. PMH: Hypertension and diabetes. Ht: 66in Wt: 160lb BMI: 25.8kg/m2 IBW: 142lb +/- 10% RD Assessment: (02/08) 83yo M, who was admitted for breathing difficulty. (?) TB. Waiting for health dept evaluation. Currently on airborne isolation. Pt with good appetite. PCT recorded 100% meal intake since admission. Constipation has resolved. No other GI complains at this time. Current diet is appropriate and adequate. Malnutrition Evaluation (02/08) The patient does not meet criteria for a specified degree of malnutrition at this time. Will re-evaluate at follow-up as appropriate. Diet Education Needs Assessment: Diet education not indicated. Nutrition Care Level: Low Maribell Mason, MS, RD, LD
--- NOTE | 2019-02-08 19:18 | NUR ---
bedside rounds done with oncoming nurse. call light within reach.
[2019-02-08] MEDS: TAMSULOSIN HCL 0.4 MG CAP PO SCH (20:28)
[2019-02-09] VITALS (7 sets, daily range): BP systolic 113–139; BP diastolic 61–76
[2019-02-09] MEDS: ALBUTEROL SULF 0.083% NEB SOLN 3 ML NEB NEB SCH ×6 (03:50→22:50)
[2019-02-09] MEDS: IPRATROPIUM BROMIDE 0.02% 2.5 ML NEB NEB SCH ×4 (03:50→19:35)
--- NOTE | 2019-02-09 07:13 | NUR ---
REPORT GIVEN TO ONCOMING NURSE,WALKING ROUNDS MADE.PT RESTING IN BED WITH NO S/S OF DISTRESS.
[2019-02-09] MEDS: INSULIN LISPRO 100 UNIT/1 ML 3ML VIAL SQ SCH ×4 (07:30→20:40)
--- NOTE | 2019-02-09 08:51 | Progress Note ---
DATE: SUBJECTIVE: The patient had some supraventricular tachycardia last night. He required a dose of metoprolol and his pulse returned to normal limits. Cardiology was subsequently consulted. PHYSICAL EXAMINATION: VITAL SIGNS: The blood pressure is 132/76, saturation was 95%, and pulse was 83. HEENT: Shows no facial swelling or erythema. The nasal mucosa is normal. The oropharynx is normal. LYMPHATIC: Shows no submandibular, cervical, or supraclavicular adenopathy. CARDIAC: Reveals a regular rate and rhythm with normal S1 and S2. LUNGS: Auscultation of lungs reveals clear breath sounds bilaterally. There is no wheezing. ABDOMEN: Soft and nontender. There is no rebound or guarding. EXTREMITIES: Show no leg edema or calf tenderness. There is no cyanosis or clubbing. SKIN: Shows no rashes. NEUROLOGICAL: Shows no focal abnormalities. IMPRESSION: 1. Exudative Pleural effusion with lymphocytic predominance. 2. QuantiFERON gold that is positive. 3. Hypertension. 4. Diabetes. PLAN: 1. The patient is awaiting cardiology evaluation. 2. Await final AFB results. 3. Repeat chest x-ray. MD GERSON Palomares/ISIS /[id number]
[2019-02-09] MEDS: SITAGLIPTIN 100 MG TAB PO SCH (09:04)
[2019-02-09] MEDS: METOPROLOL SUCCINATE 25 MG TAB XL PO SCH (09:04)
[2019-02-09] MEDS: POLYETHYLENE GLYCOL 3350 17 GM PACK PO SCH (09:04)
--- NOTE | 2019-02-09 12:17 | Consultation ---
DATE OF CONSULTATION: Cardiology Consultation CONSULTING PHYSICIAN: Bravo Hopkins M.D. REASON FOR CONSULTATION: Questionable SVT. HISTORY OF PRESENT ILLNESS: Mr. Pettit is an 83-year-old male, who is a patient of Dr. Johnathan Hernandez, billet cutter, who has been suffering from a cough for the last month and had initially been treated for pneumonia and had a positive QuantiFERON test as outpatient. He had been seeking care with Dr. Paula and a thoracentesis was recommended secondary to pleural effusion, however, the patient did not want to proceed with that procedure and for that reason, he presented at [facility] with shortness of breath and requested care. He has a pertinent past medical history of diabetes and hypertension. We were requested to see this patient due to arrhythmia noted on telemetry yesterday. Review of strips reveal moments of atrial flutter and also sinus tachycardia and SVT. On consultation, the patient is questioned about these episodes. The patient appears to be asymptomatic at this time. Denied any palpitation, shortness of breath, or chest pain then and even now. He also denies fever or chills. He states that his cough is much improved and also denies shortness of breath, abdominal pain, or any issues with urination. PAST MEDICAL HISTORY: Hypertension and type 2 diabetes. REVIEW OF SYSTEMS: Negative except as mentioned in the history of present illness above. FAMILY HISTORY: Noncontributory. SOCIAL HISTORY: He has a good social support. He is a nonsmoker and does not use illicit drugs or alcohol. PHYSICAL EXAMINATION: VITAL SIGNS: Temperature 98.4, pulse 83, respiratory rate 19, blood pressure 132/76, and oxygen saturation 95% on room air. GENERAL: Alert and oriented x3. Resting comfortably in bed. Does not appear to be in any acute distress. NECK: Supple. No JVD noted. LUNGS: Diminished breath sounds in anterior and posterior lower lobes. No wheezing and no rhonchi noted. CARDIOVASCULAR: Regular rate and rhythm. No gallop. No murmur. ABDOMEN: Soft and nontender. EXTREMITIES: Lower extremity, no edema. 2+ pedal pulses. CARDIOVASCULAR MEDICATIONS: 1. Metoprolol 25 mg p.o. daily. 2. Lovenox 40 mg subcu daily. LABORATORY DATA: WBC 7.13, hemoglobin 9.2, hematocrit 28.9, and platelets 477. Telemetry at this time, sinus rhythm. IMPRESSION: 1. Atrial flutter. 2. Awaiting final tuberculosis results, however, one positive QuantiFERON. 3. Hypertension. 4. Type 2 diabetes. 5. Community-acquired pneumonia. PLAN: Maintain on telemetry at all time. Agree to initiate a beta david, continue for now. Monitor hemoglobin closely and anemia. Obtain echocardiogram this morning. We will be discussing timing and initiation of anticoagulation given atrial flutter. We will continue to follow this patient very closely. Thank you for this consultation, Dr. Hopkins. Dictated by Nancy Resendez, EDU Roel Gonzalez MD [facility]/ISIS /[id number]
--- NOTE | 2019-02-09 16:18 | Progress Note ---
DATE: 02/09/2019 Medicine Progress Note SUBJECTIVE: The patient is doing well today with no other complaints. We will go ahead and remove the Randle. We will go ahead and also consult with Infectious Disease. on Monday. PHYSICAL EXAMINATION: VITAL SIGNS: He is afebrile, normotensive. Respiratory rate is good. GENERAL: Not in acute distress. Alert and oriented x3. Cooperative on examination. HEENT: Head is normocephalic and atraumatic. Throat; no evidence of erythema or exudates in the posterior pharynx. Has poor dentition. PULMONARY: Clear to auscultation bilaterally. No wheezing, no rales, no rhonchi, and no crackles appreciated. CARDIOVASCULAR: Positive S1 and S2. No murmurs, rubs, or gallops appreciated. ABDOMEN: Soft, nondistended, and nontender to palpation. Bowel sounds present. MUSCULOSKELETAL: Strength is 5/5 throughout. No evidence of any muscle deficits on examination. No weakness appreciated. NEUROLOGIC: Cranial nerves II through XII grossly intact. No evidence of any neurological deficits on exam. SKIN: Intact. Warm to touch. Good cap refill. PSYCHIATRIC: Normal affect and mood. EXTREMITIES: No edema. Good range of motion throughout. LABORATORY DATA: CBC stable. Chemistry stable. IMPRESSION: 1. Respiratory distress with underlying pleural effusion, status post thoracentesis on 02/05/2019 with 500 mL of fluid removed. 2. QuantiFERON gold positive, rule out tuberculosis. 3. Probable community-acquired pneumonia. 4. Hypertension. 5. Type 2 diabetes. 6. Supraventricular tachycardia. PLAN: At this time, we are awaiting for final recommendations. evaluate the patient on Monday. I will go ahead and get ID involved to just and see how the patient is doing and to see if there are any other treatments and also close followup as an outpatient. Pulmonary is following as well. His first AFB was found to be negative. He has two more pending. In relation to his irregular heart rate, Cardiology was consulted, recommended EP evaluation. He is on antibiotics for underlying pneumonia. Blood pressure and diabetes are well managed and controlled. Otherwise, continue same plan of care and monitor closely. MD RUFINO Nuñez/ISIS /[id number]
[2019-02-09] MEDS: ENOXAPARIN SOD INJ 40 MG/0.4 ML SYR SC SCH (16:40)
[2019-02-09] MEDS ORDERED: METOPROLOL TARTRATE INJ 1 MG/ML VIAL IV PRN (17:00)
--- NOTE | 2019-02-09 17:00 | NUR ---
per , will need ablation outpatient for irregular heart rhythm evaluation. MD gave patient's his business card and explained need to follow up outpatient in his office, patient and agreed.
[2019-02-09] MEDS ORDERED: SODIUM CHLORIDE 0.9% 50ML 50 ML ONE (18:05)
[2019-02-09] MEDS ORDERED: IOPAMIDOL 370 MG/ML 200 ML INFUS..BTL INJ ONE (18:05)
--- NOTE | 2019-02-09 18:11 | Diagnostic Imaging Report ---
EXAMINATION: CHEST 2 VIEWS INDICATION: ^Persistent Pleural Effusion ^[id number] ^[id number] COMPARISON: 02/06/2019 FINDINGS: PA and lateral views TUBES and LINES: None. LUNGS: Lungs are well inflated. Mild vascular congestion. PLEURA: No pneumothorax. Persistent moderate right pleural effusion. Left nipple shadow is visualized. HEART AND MEDIASTINUM: The cardiomediastinal silhouette is unremarkable. Aorta is calcified and tortuous. BONES AND SOFT TISSUES: No acute osseous lesion. Soft tissues are unremarkable. UPPER ABDOMEN: No free air under the diaphragm. IMPRESSION: Persistent moderate right pleural effusion with adjacent compressive atelectasis. Mild vascular congestion. Signed by: Dr. Damien Rock MD on 02/09/2019 6:08 PM
--- NOTE | 2019-02-09 18:23 | NUR ---
patient voiding, 1 episode of incontinence. urinal at bedside. call light within reach.
--- NOTE | 2019-02-09 19:54 | Consultation ---
DATE OF CONSULTATION: REASON FOR CONSULTATION: Concerned about TB. Thank you so much for asking me to see this patient. HISTORY OF PRESENT ILLNESS: This patient who is an 83-year-old [place]ian male, who originally was admitted on February 04. They came to the emergency room with fever and chills. According to family and the patient, he has been sick for more than a month. He has been having fever, chills, night sweats for a month. He lost 5 pounds. HISTORY OF PRESENT ILLNESS: This patient apparently was in retirement in [place] some time ago. The patient was referred to Dr. Johnathan Hernandez, he did chest x-ray, it showed right pleural effusion. Arrangements for the patient to have thoracocentesis was done by Dr. Johnathan Hernandez, but apparently he did not come, he came here. The patient also has a history of diabetes mellitus and hypertension. PAST MEDICAL HISTORY: Hypertension, diabetes. PAST SURGICAL HISTORY: Denies. ALLERGIES: NKA. SOCIAL HISTORY: There is no smoking, drug abuse, or alcohol abuse. 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 He was in [facility] including [place], [place] 40 years ago. He was in the halfway in [place]. The patient was admitted. He has been followed by Dr. Johnathan Hernandez. The patient's white count of 7.3, hemoglobin 9.2, hematocrit 28. Sodium of 136, potassium 4.4, creatinine 1.27, glucose 139, total protein 6.3 his PSA was 18. He had a CT of the chest, which showed large right pleural effusion with marked compressive atelectasis. MEDICATIONS: His medication list, he is on insulin, Maalox, and Flomax. LABORATORY DATA: Sputum for cultures are sent for AFB, still pending. The smear was negative time one. His pleural effusion showed WBC of 5455 and RBC of 2960. PHYSICAL EXAMINATION: GENERAL: He is currently alert, oriented, does not seem to be in acute distress. VITAL SIGNS: Stable currently, afebrile. There is no fever since admission. HEENT: Not icteric. NECK: Supple. CHEST: Few crackles. COR: S1, S2. No S3 or S4, no murmur. ABDOMEN: Soft. Bowel sounds present. No tenderness. EXTREMITIES: No edema. IMPRESSION: Fever, night sweats, history of pleural effusion very suggestive of tuberculosis. Workup is still pending. The smear is negative. The patient could be discharged home. Dr. Johnathan Hernandez is going to follow up with him. I would suggest to do CT abdomen and pelvis. I also suggest to follow up on the high PSA. I would also suggest to obtain HIV. If the cultures came back positive for TB, then start treatment and inform Health Department, right now I think if the smears are negative, he is not infectious, if three smears are negative, but that does not mean he does not have tuberculosis. Discussed with the medical team. The patient will be discharged home to do these test. I recommended as outpatient. MD PARMINDER Louis/ISIS /[id number]
[2019-02-09] MEDS: TAMSULOSIN HCL 0.4 MG CAP PO SCH (20:58)
[2019-02-10] VITALS: BP 120/65
[2019-02-10] MEDS: ALBUTEROL SULF 0.083% NEB SOLN 3 ML NEB NEB SCH ×4 (03:55→15:06)
[2019-02-10] MEDS: IPRATROPIUM BROMIDE 0.02% 2.5 ML NEB NEB SCH ×3 (03:55→11:10)
--- NOTE | 2019-02-10 07:05 | NUR ---
REPORT GIVEN TO ONCOMING NURSE.WALKING ROUNDS MADE.PT RESTING IN BED WITH NO S/S OF DISTRESS.
[2019-02-10] MEDS: INSULIN LISPRO 100 UNIT/1 ML 3ML VIAL SQ SCH ×3 (07:30→16:30)
[2019-02-10 08:07] VITALS: BP 144/69
[2019-02-10 08:15] VITALS: BP 144/69
[2019-02-10] MEDS: METOPROLOL SUCCINATE 25 MG TAB XL PO SCH (09:12)
[2019-02-10] MEDS: SITAGLIPTIN 100 MG TAB PO SCH (09:12)
[2019-02-10] MEDS: POLYETHYLENE GLYCOL 3350 17 GM PACK PO SCH (09:12)
--- NOTE | 2019-02-10 11:24 | NUR ---
CM SPOKE WITH AMARA,KAYKAY, AND LADI REGARDING PATIENT'S DISCHARGE. PER KAYKAY/HOUSE CLEANER, DR. CHURCHILL WANTED TO SPEAK WITH CM REGARDING DC PLANNING. PER LADI/BEDSIDE NURSE DR. DUQUE WOULD LIKE FOR [facility] TO SEE PATIENT PRIOR TO DC. [facility] WAS CONTACTED MONDAY BY NURSE TURF MANAGER, PER LADI. [facility] HAS NOT BEEN TO THE BEDSIDE TO DATE. CM REQUESTED TO TIA/CHARGE NURSE THAT KERLINE(CONSULTING MD) AND DUNIA (ATTENDING)SPEAK TO EACH OTHER REGARDING DC PLAN.TIA/CHARGE NURSE WILL CONTACT INFECTION CONTROL AND OR NURSING MANAGEMENT FOR [facility] CONTACT INFORMATION
[2019-02-10 12:00] VITALS: BP 128/77
--- NOTE | 2019-02-10 12:32 | Progress Note ---
DATE: Cardiology Progress Note SUBJECTIVE: The patient is without any complaints. He states that he feels well. Denies any chest pain, shortness of breath or cough. OBJECTIVE: VITAL SIGNS: Temperature 97.7, pulse 80, respiratory rate 18, blood pressure 144/69, oxygen saturation 96% on room air. GENERAL: Alert and oriented x3. Resting comfortably in bed, does not appear to be in any acute distress. NECK: Supple. No JVD noted. LUNGS: Diminished breath sounds in anterior and posterior lower lobes, otherwise clear to auscultation. CARDIOVASCULAR: Regular rate and rhythm. No murmurs, no gallops. ABDOMEN: Soft, nontender. EXTREMITIES: Lower extremities no edema. 2+ pedal pulses. CARDIOVASCULAR MEDICATIONS: 1. Metoprolol 25 mg p.o. daily. 2. Lovenox 40 mg subcu daily. LABORATORY DATA: No new labs today. IMPRESSION: 1. Supraventricular tachycardia. 2. Awaiting final tuberculosis results, however, positive QuantiFERON. Awaiting clearance from [facility]. 3. Hypertension. 4. Type 2 diabetes. 5. Community acquired pneumonia. PLAN: The patient will be receiving SVT ablation as outpatient from Dr. Correa. For now, continue with the above-listed beta-david and also maintain on telemetry at all time. Echocardiogram obtained on February 05 with left ventricular ejection fraction of 55% to 60%, mitral regurgitation and tricuspid regurgitation, trivial noted. We will continue to monitor this patient. Dictated by Nancy Resendez NP MD MARIAN Noriega/ISIS /[id number]
--- NOTE | 2019-02-10 12:37 | Progress Note ---
DATE: Pulmonary Critical Care Progress Note SUBJECTIVE: The patient was evaluated by Cardiology yesterday. They recommended continuing the same medications and the possible catheterization as an outpatient. The patient also had an elevated PSA yesterday. He is urinating well at this time. PHYSICAL EXAMINATION: VITAL SIGNS: The patient is afebrile. The blood pressure is 144/69 and the pulse is 98. The patient is afebrile. HEENT: Shows no facial swelling or erythema. CARDIAC: Reveals regular rate and rhythm with a normal S1 and S2. LUNGS: Auscultation of lungs reveals clear breath sounds bilaterally. There is no wheezing. ABDOMEN: Soft and nontender. There is no rebound or guarding. EXTREMITIES: Show no leg edema or calf tenderness. IMPRESSION: 1. Exudate of pleural effusion with a lymphocytic predominance. 2. Positive QuantiFERON gold. 3. Elevated PSA suggestive of possible prostate cancer. 4. Supraventricular tachycardia that is now controlled. 5. Hypertension. 6. Diabetes. PLAN: 1. The patient can be discharged home. The patient should follow up with me in 1-2 weeks. Even if the AFB smear is negative, he still will require a followup for an additional six weeks until the final culture results are back. 2. The patient will need an outpatient evaluation for his elevated PSA with Urology. 3. The patient is also scheduled to follow up with Cardiology and with his primary doctor, Dr. Benson Osorio. Johnathan Hernandez MD [facility]/ISIS /[id number]
--- NOTE | 2019-02-10 14:46 | Diagnostic Imaging Report ---
CT Abdomen And Pelvis with Intravenous Contrast INDICATION: ^elevated PSA ^[id number] ^1730 ^Y TECHNIQUE: Thin collimation axial images obtained from the diaphragm to the level of the pubic symphysis following the uneventful administration of 100 cc of low osmolar, nonionic intravenous contrast. Dose reduction techniques used: Automated exposure control, adjustment of the mAs and/or kVp according to patient size, standardized low-dose protocol, and/or iterative reconstruction technique. RADIATION DOSE: Total DLP: 377.57 mGy*cm Estimated effective dose: (DLP x 0.015 x size factor) mSv CTDIvol has been reviewed. It is below the limits set by the Radiation Protocol Committee (RPC). COMPARISON: CT chest 02/04/2019. ABDOMEN FINDINGS: Lung Bases: Loculated right pleural effusion is redemonstrated measuring 10 cm in AP depth with enhancement of the parietal pleura and atelectasis of the right lower lobe. The left lung demonstrates minimal posterior costophrenic angle atelectasis. Visualized portion of the mediastinum is normal. Liver: Capsular calcifications in the anterior left lobe are stable. No soft tissue mass. Gallbladder: Present and appears normal. No biliary ductal dilatation. Pancreas: Mildly atrophic without soft tissue mass or ductal dilatation. Calcification in the inferior head/uncinate measures 3 mm Spleen: Normal in size. No evidence of mass.. Adrenal Glands: No evidence for mass. Kidneys: Right: Normal enhancement. No soft tissue mass. No hydronephrosis. Left: Normal enhancement. A lower pole cyst measures 12 mm. No hydronephrosis. Lymph Nodes: No enlarged abdominal or retroperitoneal lymph nodes. Aorta: Normal in diameter and diffusely calcified. PELVIS FINDINGS: Bowel: Stomach: Normal. Small Bowel: Normal in caliber with normal wall thickness. Large Bowel: Diverticulosis coli. No associated inflammation. Moderate burden of stool throughout. Appendix: Normal appendix. Bladder: Circumferential mural thickening at the dome and nondependent intraluminal air. A discrete mass is not visualized. Prostate: Measures 6.2 x 7.2 x 6.2 cm (volume is 144.7 cc). Seminal vesicles: Normal Peritoneum/retroperitoneum: No free fluid or fluid collection. Bones: Mild degenerative changes of the spine. There are no lytic or blastic lesions. IMPRESSION: 1. Prostate hypertrophy; no lymphadenopathy or osseous mass. Bone scan is a more sensitive modality to detect osseous metastases. If there is a diagnosis of prostate cancer. 2. Loculated right pleural effusion with associated atelectasis is stable. 3. Mild bladder dome thickening is suggestive of outlet obstruction from prostate hypertrophy. Intraluminal air is suggestive of recent instrumentation. Signed by: Dr. Juan F Burks MD on 02/10/2019 2:42 PM
--- NOTE | 2019-02-10 15:03 | Consultation ---
DATE OF CONSULTATION: 02/10/2019 Consultation is called by Dr. Hopkins. CHIEF COMPLAINT/REASON FOR CONSULTATION: Elevated PSA. HISTORY OF PRESENT ILLNESS: Warren Pettit is an 83-year-old [place] male admitted to the hospital for a pleural effusion and tuberculosis workup. A PSA was ordered by Dr. Johnathan Hernandez, for unclear reasons. In an 83-year-old male, I would not recommend PSA screening unless the patient has a history of prostate cancer known, it is not indicated in this age group. The patient denied dysuria, denied hematuria, has been treated prior for large prostate. PAST MEDICAL HISTORY: Diabetes mellitus, hypertension, and benign prostatic hyperplasia. MEDICATIONS: Please see MAR. ALLERGIES: NKDA. SOCIAL HISTORY: Denied smoking or drinking. FAMILY HISTORY: Denied urologic stones or malignancies. REVIEW OF SYSTEMS: Noncontributory other than problems mentioned above for 12 organ systems. PHYSICAL EXAMINATION: GENERAL: Elderly male, in no distress. VITAL SIGNS: Temperature 97.7, pulse 98, respirations 20, and blood pressure 144/69. HEENT: Sclerae anicteric. NECK: Supple. BACK: Without costovertebral bilaterally. ABDOMEN: Soft, nontender, and nondistended. No palpable mass. No palpable hernias. No palpable lymphadenopathy. : Normal external genitalia. EXTREMITIES: No edema. NEUROLOGIC: Moves all four extremities. PSYCH: Alert and appropriate. SKIN: Intact. Normal color. PERTINENT LABORATORY DATA: Sodium 136, potassium 4.4, chloride 105, bicarb 20, BUN 25, creatinine 1.27, glucose 160. A PSA of 18. Urinalysis; 0 to 5 reds, and 0 to 5 whites. Hemoglobin 9, hematocrit 29, platelet count 477,000. IMPRESSION: 1. Elevated PSA. 2. Benign prostatic hyperplasia by history. 3. Anemia. 4. Hypertension. 5. Renal insufficiency. PLAN: Again, routine PSA screening is not indicated nor recommended by any Medical Association that I am aware of in this age group. With his elevated PSA, would have the patient follow up as an outpatient as prostate biopsy may very well be more detrimental to his health and actually having prostate cancer. Defer the anemia and hypertension to primary service. Thank you for allowing me to participate in the care of your patient. We will be happy to follow along with you. Victor Hugo Gregory MD ES/MODL /[id number] cc: MD Johnathan Laird MD Jiries S Dahu, MD
[2019-02-10 16:00] VITALS: BP 142/77
--- NOTE | 2019-02-10 16:08 | Discharge Summary ---
FINAL DISCHARGE DIAGNOSES: 1. Positive QuantiFERON Gold positive, has been cleared from ID and Pulmonary for discharge with close followup with the Health Department. Health Department has been notified and will follow up with him as an outpatient. 2. Pleural effusion, status post thoracentesis performed on 02/05/2019. 3. Probable community-acquired pneumonia, on treatment. 4. Hypertension. 5. Type 2 diabetes. 6. Supraventricular tachycardia-will follow up outpatient Cardiology and EP. 7. Elevated PSA-follow up with Urology as an outpatient. CONSULTANTS: 1. Urology. 2. Cardiology. 3. Infectious Disease. 4. PT. 5. Urology. VITAL SIGNS: Temperature is 97.7, pulse 80, respiratory rate is 16, blood pressure is 144/69, pulse ox 96% on room air. LABORATORY DATA: White count 7.1, hemoglobin 9.2, hematocrit 28.9, platelets 477. Coagulation; PT 14, INR 1, PTT 58. Chemistry; sodium 136, potassium was 4.4, chloride 105, bicarbonate was 20, anion gap of 15, BUN was 25, creatinine was 1.27. Calcium was 8.8. Total bilirubin was 0.3. LFTs; ALT 63, AST was 23, alkaline phosphatase 68. Troponins were negative. Albumin 2.2. His PSA was 18, which we got Urology to evaluate urine. UA was negative. Pleural effusions found to be negative for any growth or any organisms. Blood cultures were negative. Acid-fast bacilli smears preliminary were negative, but still pending several of sputum cultures. IMAGING STUDIES: Chest x-ray, moderate right pleural effusion. Patchy opacity at the right lung base, likely represents associated subsegmental atelectasis. CT chest shows a large right pleural effusion with marked compressive atelectasis of the right lower lobe with moderate compressive atelectasis of the right middle lobe. There is some enlarged right lower paratracheal wound, which is partly calcified. Multiple mediastinal hilar calcified nodes consistent with prior granulomatous disease. It showed some concerns for underlying pulmonary hypertension, which we will follow up as an outpatient with the patient. Thoracentesis ultrasound performed. Chest x-ray 02/09/2019, shows persistent moderate right pleural effusion with adjacent compressive atelectasis. CT abdomen and pelvis pending. HOSPITAL COURSE: This is an 83-year-old male, who came in to the hospital with complaints of shortness of breath, cough, congestion, was treated for underlying community-acquired pneumonia. The patient maintained on broad-spectrum IV antibiotics. Blood cultures were negative. Pulmonary was consulted. Apparently, this patient was following up with Dr. Hernandez, who apparently had a positive QuantiFERON Gold and was admitted for further evaluation and management for concerns for TB. The patient had sputum cultures collected for AFB. One of them are preliminary to be negative, but several others are still pending. We ended up getting the Health Department involved in this particular case. After discussing this case with Pulmonary and they suggested that the patient can be discharged home and they will follow up with him as an outpatient. There is no current treatment at this time until the CBC results are back to be positive. According to Case Management and hospital staff, the patient is cleared for discharge and they will follow up closely. They will coordinate this as well. I did consult with ID as well and they clarified the same thing that the patient can be discharged and will be closely followed up with methods and procedures analyst and closely follow up on sputum cultures. Health Department will also follow. He was discharged on oral antibiotics for community-acquired pneumonia. He did develop episodes of SVT requiring Cardiology consultation and EP consultation. He was on Toprol-XL, which he will continue and follow up with EP has been planned as outpatient SVT ablation. The patient verbalized understanding. He was also found to have an elevated PSA, which Urology was consulted and recommended outpatient followup in the office for further management and care. The patient was cleared for discharge by all consultants for discharge to home. On discharge, the patient was doing well with no other complaints. I went over with the patient's diesel technician mechanic about every business analyst consultant and their recommendations and he verbalized understanding and agreed with plan of care. On the day of discharge, vital signs stable, labs are being stable. The patient is seen and evaluated, examined thoroughly on the day of discharge. No other complaints. The patient verbalized understanding and agrees with plan of care to followup accordingly as an outpatient with primary care physician in 1 week and the consultants as described above, especially Pulmonary in 1 week for results, ID p.r.n. as needed, maybe in 2-3 weeks, Urology in 2-3 weeks for PSA followup and marketing services vice president in 2 weeks for SVT patient as an outpatient. MEDICATIONS: See med reconciliation form. DISPOSITION: Home. CONDITION: Stable. DIET: Heart healthy. In the event of any worsening symptoms, the patient was advised to come back to the ED for further evaluation. Discharge summary took greater than 35 minutes. Once again, the patient will follow up with all consultants, in which he verbalized understanding. Also, the Health Department will contact him once he gets discharged to follow up and monitor him very closely. MD RUFINO Nuñez/ISIS /[id number]
--- NOTE | 2019-02-10 16:23 | Progress Note ---
DATE: SUBJECTIVE: Mr. Pettit is doing well. REVIEW OF SYSTEMS: HEENT: Negative. PULMONARY: Negative. CARDIAC: Negative. : Negative. SKIN: There is no rash. Discussed with the patient at length. 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 I have reviewed with him and with other doctors all the notes and all the findings of the labs. PHYSICAL EXAMINATION: GENERAL: He is currently alert, oriented. VITAL SIGNS: Stable, currently afebrile. HEENT: Not icteric. NECK: Supple. CHEST: Clear. HEART: S1-S2. No murmur. ABDOMEN: Soft. Bowel sounds present. No tenderness. EXTREMITIES: No edema. IMPRESSION AND PLAN: Fever for 4 weeks, abnormal finding on chest x-ray, very suggestive of tuberculosis. So far workup is negative, we will wait for six weeks for cultures; if these are negative, I think we should proceed with further consider approval biopsy. Prostate hypertrophy, concern malignancy. Urology saw the patient, . Discussed with the patient, answered all his questions. Discussed with the family, answered all their questions. Discussed with Medical team. I have given my business card. The patient is going to follow up with Dr. Hernandez, Urology, and his primary care. Time spent 45 minutes. MD PARMINDER Louis/ISIS /[id number]
[2019-02-10] MEDS: ENOXAPARIN SOD INJ 40 MG/0.4 ML SYR SC SCH (18:18)
--- NOTE | 2019-02-10 20:00 | NUR ---
PT DISCHARGED HOME AT THIS TIME IN STABLE CONDITION.ALL PERSONAL BELONGINGS TAKEN WITH THE PT.FAMILY PRESENT AT THE TIME OF DISCHARGE.
--- NOTE | 2019-02-11 15:58 | Consultation ---
DATE OF CONSULTATION: 02/10/2019 REASON FOR CONSULTATION: SVT. HISTORY OF PRESENT ILLNESS: Mr. Pettit is an 83-year-old gentleman, who was in the hospital for respiratory symptoms, cough, sputum and ruling out TB, which the first two samples were negative. During hospital admission, last night, he went into a rapid supraventricular tachycardia with rates up to 180 to 200 symptomatic. It was terminated after while with metoprolol p.o. 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 EP has been consulted. PAST MEDICAL HISTORY: Respiratory symptoms, pneumonia, supraventricular tachycardia, PACs. FAMILY HISTORY: Negative for sudden or atrial fibrillation. SOCIAL HISTORY: is at the bedside. No drugs, no smoking. REVIEW OF SYSTEMS: As above, otherwise negative for fevers, chills, loss of vision or blurry vision, ear pain, ear discharge, headache, numbness. Positive for chest pain, palpitation. Positive for cough, sputum. Negative for nausea, vomiting, dysuria, frequency, rash, bruise, bleeding, clots, anxiety, depression, heat or cold intolerance. PHYSICAL EXAMINATION: VITAL SIGNS: Blood pressure is 130/78, heart rate is currently 65 beats per minute. GENERAL: The patient is lying in bed, in no apparent distress. NECK: Supple with no lymphadenopathy. Thyroid exam is normal. CARDIOVASCULAR: S1, S2. LUNGS: Clear bilaterally. ABDOMEN: Soft, benign. EXTREMITIES: Warm and dry. NEUROLOGIC: Nonfocal. SKIN: No new rash. No anxiety or depression. Telemetry reviewed showed a sudden onset of narrow complex supraventricular tachycardia with rates up to 180 to 200 and termination is abrupt as well. Echo is pending. ASSESSMENT AND PLAN: An 83-year-old gentleman with highly symptomatic supraventricular tachycardia, has had history of that is the past, metoprolol p.o. has been initiated 25 mg daily, which should be continued. Also has a breakthrough inpatient's termination for SVT and suggested metoprolol 5 mg IV p.r.n. 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 I discussed this with him and his . They understand and want to proceed. In summary, we will set up for outpatient AVNRT ablation at [place]. We will continue metoprolol for now and hold it 2 days before the procedure. MD LEXII Rock/ISIS /[id number]
--- NOTE | 2019-02-12 03:41 | Discharge Summary ---
ADDENDUM: IMAGING STUDIES: CT scan abdomen and pelvis with IV contrast: Impression shows BPH. There is no adenopathy or osseous mass. There is a large right pleural effusion with associated atelectasis, which is stable. He has a mild bladder dome thickening suggestive of outlet obstruction from his prostate, but he does have a Randle and he will go home with the Randle. The patient will follow up with major sales associate as an outpatient in relation to further pulmonary care. He will also go with a CT scan with him as an outpatient and also we will monitor him and manage his hospital consequence as well if the patient truly has TB. Plan of care was discussed with the patient's family including the nursing staff. He verbalized understanding and agrees to plan of care to follow up closely. MD RUFINO Nuñez/ISIS /[id number]
== END 2019-02-10 19:50 | disposition home or self-care (01) | DRG 178 ==
LOC: ER 11:26 → ERHOLD 13:35 → MED/SURG2 15:45
PROVIDERS: ADMIT Internal Medicine; ATTEND Internal Medicine
PROC: 0W993ZX Drainage of Right Pleural Cavity, Percutaneous Approach, Diagnostic (ICD-10-PCS; principal; 2019-02-05)
DX: A15.9 Respiratory tuberculosis unspecified (principal); I48.92 Unspecified atrial flutter; I47.1 Supraventricular tachycardia; N17.9 Acute kidney failure, unspecified; J18.9 Pneumonia, unspecified organism; J90 Pleural effusion, not elsewhere classified; R06.03 Acute respiratory distress; Z88.5 Allergy status to narcotic agent; Z88.8 Allergy status to other drugs, medicaments and biological substances; R97.20 Elevated prostate specific antigen [PSA]; D64.9 Anemia, unspecified; N40.1 Benign prostatic hyperplasia with lower urinary tract symptoms; R33.8 Other retention of urine; E11.22 Type 2 diabetes mellitus with diabetic chronic kidney disease; I12.9 Hypertensive chronic kidney disease with stage 1 through stage 4 chronic kidney disease, or unspecified chronic kidney disease; N18.9 Chronic kidney disease, unspecified; D72.820 Lymphocytosis (symptomatic); Z79.4 Long term (current) use of insulin
CPT/HCPCS: 32555; 36415; 71045; 71046; 71250; 74177; 74470; 80053; 81001; 82550; 82553; 82948; 83036; 83615; 83880; 84152; 84157; 84484; 85025; 85610; 85730; 87040; 87070; 87116; 87205; 87206; 89051; 93005; 93306; 94640; 99284; J0456; J0696; J1650; J7030; Q9967

== ENCOUNTER 2021-02-28 13:17 | Emergency (ER) | payer MEDICARE ==
[~2021-02-28] VITALS: Ht 177.8 cm; Wt 83.9 kg
[~2021-02-28 13:17] MED LIST: JANUVIA100 MG PO; LISINOPRIL40 MG PO
[2021-02-28] MEDS: CASIRIVIMAB/IMDEVIMAB 10 ML in SODIUM CHLORIDE 0.9% 100 ML IV ONE (14:15)
== END 2021-02-28 19:18 | disposition home or self-care (01) ==
LOC: ER 14:15
DX: U07.1 COVID-19 (principal); I10 Essential (primary) hypertension; E11.9 Type 2 diabetes mellitus without complications; Z79.84 Long term (current) use of oral hypoglycemic drugs
CPT/HCPCS: 99283; J7050